=== PATIENT | male | born 1955 | race Caucasian/White ===

== ENCOUNTER → 2016-08-12 | Outpatient (CLI) | payer BC ==
--- NOTE | 2016-08-12 15:13 | RAD ---
Left neck ultrasound, 08/12/2016: History: Neck swelling The left upper neck and submandibular region were carefully scanned. Several lymph nodes are identified. The largest of these measures 18 x 9 x 15 mm. It lies adjacent to the left parotid gland. Its margins are smooth and it demonstrates normal simon architecture. It is mildly hypervascular. Based on its short axis dimension it is considered to be at the upper limits of normal in size. Slightly lower in the left neck there is a 21 x 9 x 6 mm node. Several other smaller lymph nodes are present on both sides. IMPRESSION: Borderline left cervical adenopathy. Clinical surveillance is suggested. Thyroid ultrasound, 08/12/2016: History: Neck swelling The right lobe of the gland measures 3.5 x 1.2 x 1.1 cm while the left lobe of the gland measures 4.0 x 1.1 x 0.85 cm. The gland is moderately heterogeneous with vague areas of decreased density intermixed with higher density areas. No discrete thyroid mass is seen. The thyroid vascularity appears to be decreased. IMPRESSION: Heterogeneous thyroid gland perhaps representing the sequelae of previous thyroiditis.
== END | disposition home or self-care (01) ==
LOC: US 12:28
PROVIDERS: ATTEND Physician Assistant Medical
DX: R22.1 Localized swelling, mass and lump, neck (principal); R50.9 Fever, unspecified; R59.9 Enlarged lymph nodes, unspecified
CPT/HCPCS: 76536

== ENCOUNTER → 2016-12-28 | Outpatient (CLI) | payer BC ==
--- NOTE | 2016-12-28 09:22 | RAD ---
Chest radiograph 12/28/2016 at 0838 hours Indication: Cough, edema and cervicalgia Comparison: Chest radiograph 10/02/2014 Technique: PA and lateral views of the chest are provided. Findings: There is borderline appearance of the cardiomediastinal silhouette. Respiratory motion limits evaluation of the lateral view. No pleural effusions or pneumothorax. There is mild interstitial prominence without definite pulmonary vascular congestion. Lungs are otherwise clear. No significant osseous abnormality is identified. Impression: Mild interstitial prominence, predominantly at the lung bases, may be chronic. No acute infiltrate is identified.
--- NOTE | 2016-12-28 09:29 | RAD ---
Cervical spine radiograph 12/28/2016 at 0857 hours Indication: Cough, edema and cervicalgia Comparison: None available Technique: AP, lateral, odontoid views, bilateral obliques and swimmer's view of the cervical spine are provided. Findings: Cervical spine is visualized from the craniocervical junction through approximately C6-C7. There is straightening of the normal cervical lordosis. The C1 lateral masses articulate appropriate with the C2 vertebral body. Dens is normal in appearance. Anterior marginal osteophytosis is present most prominent at C5-C6 and C6-C7. Posterior osteophytosis is noted at C4-C5, C5-C6 and C6-C7. There is moderate facet arthropathy at C2-C3, C3-C4 and C5-C6. No acute fracture is identified. Moderate multilevel uncovertebral joint arthropathy is present. There is right neural foraminal stenosis at C3-C4, C4-C5, C5-C6 and C6-C7 and left neuroforaminal stenosis at C5-C6 and C6-C7. Impression: 1. Moderate cervical spondylosis with suggestion of osseous neural foraminal stenosis on the right at C3-C4, C4-C5, C5-C6 and C6-C7 and on the left at C5-C6 and C6-C7. 2. No acute fracture is identified. Note that the cervicothoracic junction is not well visualized.
== END | disposition home or self-care (01) ==
LOC: DXRADRC 08:35
PROVIDERS: ATTEND Physician Assistant Medical
DX: M47.892 Other spondylosis, cervical region (principal); M40.292 Other kyphosis, cervical region; M25.78 Osteophyte, vertebrae; M12.88 Other specific arthropathies, not elsewhere classified, other specified site; R60.9 Edema, unspecified; R05 Cough; R51 Headache
CPT/HCPCS: 71020; 72050

== ENCOUNTER → 2017-01-26 | Outpatient (CLI) | payer BC ==
[~2017-01-26] MED LIST: IOHEXOL 300 MG/ML 75 ML VIAL. IV ONE
--- NOTE | 2017-01-26 10:40 | RAD ---
Examination: CT soft tissue neck with IV contrast History: History of neck pain Comparison: None Technique: Axial CT images of the soft tissue the neck were performed with IV contrast with coronal and sagittal reformats were performed. PQRS Compliance Statement: One or more of the following individualized dose reduction techniques were utilized for this examination: 1. Automated exposure control 2. Adjustment of the mA and/or kV according to patient size 3. Use of iterative reconstruction technique Findings: The visualized intracranial portion grossly appears unremarkable. 2 prominent nodules or lymph node identified in the left parotid gland with the largest measuring 1.5 cm. The parapharyngeal spaces are maintained. The visualized piriform sinuses, but likely grossly appears unremarkable. The submandibular glands grossly appears unremarkable. There are 3 small central cystic nodules identified in the subcutaneous region of the right cheek with mild surrounding inflammatory fat stranding. There is moderate mucosal thickening of the right maxillary sinus and mild mucosal thickening identified in the left maxillary sinus. The bilateral orbital globes appear intact. Emphysematous changes identified in the apical lungs. The thyroid appears heterogeneous and small. Moderate degenerative changes cervical spine. Impression: 1. There are 3 small central cystic nodules identified in the subcutaneous region of the right cheek with mild surrounding inflammatory fat stranding, could be subcutaneous nodule such as sebaceous cysts or cystic nodules with surrounding mild inflammation. Correlate clinically. Ultrasound will useful for further evaluation. 2. Prominent left parotid nodules or lymph nodes identified with the largest measuring 1.5 cm. Ultrasound can be useful for further evaluation. 3. Small heterogeneous thyroid gland. 4. Sinus disease.
--- NOTE | 2017-01-26 12:55 | RAD ---
Examination: Ultrasound bilateral lower extremity arterial duplex and ankle brachial indices History: History of smoking, hypertension, diabetes, bilateral leg pain while walking Comparison: None available Findings: The ankle brachial index on the right is 0.87 and in the left is 0.56. There is diffuse atherosclerotic calcification is identified in the bilateral lower extremity arterial system. There is biphasic and monophasic waveforms identified throughout the bilateral lower extremity arterial system except the left common femoral artery which demonstrates triphasic waveforms. No evidence of focal elevated velocity to suggest hemodynamically significant stenosis. Impression: 1. Diffuse atherosclerosis calcification identified in the bilateral lower extremity arterial system without focal stenosis. There are monophasic waveforms identified in the bilateral lower extremity arterial system probably due to proximal atherosclerotic disease. 2. Moderate peripheral arterial disease on the left and mild the peripheral vascular disease on the right.
== END | disposition home or self-care (01) ==
LOC: CT 09:09
PROVIDERS: ATTEND Physician Assistant Medical
DX: E04.2 Nontoxic multinodular goiter (principal); J32.9 Chronic sinusitis, unspecified; M47.892 Other spondylosis, cervical region; I73.9 Peripheral vascular disease, unspecified; E11.9 Type 2 diabetes mellitus without complications; I10 Essential (primary) hypertension; Z87.891 Personal history of nicotine dependence
CPT/HCPCS: 70491; 93922; 93925; Q9967

== ENCOUNTER → 2017-06-28 | Outpatient (CLI) | payer BC ==
--- NOTE | 2017-06-29 11:47 | RAD ---
MR#: [id number] Date of Study: 06/28/2017 Ordering Physician: HARSH ROSA, Referring Physician: HARSH ROSA, Tech: Teena Wilson RDMS, RVT, RTR APPROVED REPORT Patient Location: OUT-PATIENT Indications Claudication: Grayscale images of the bilateral lower extremity arterial vessels were obtained and reveal mild to m oderate diffuse atherosclerotic plaque. On the right side there are mildly elevated velocities at 154 cm/s in the common femoral artery. Ther e is approximately a 50% stenosis involving the proximal and mid superficial femoral artery. The comm on femoral, superficial femoral and popliteal vessels demonstrate biphasic waveforms. There is 2 vess el runoff below the knee with a occluded presumably peroneal artery. Monophasic waveforms in the post erior tibial and anterior tibial vessels with appropriate velocities are noted. On the left similarly there are mild elevation velocities in the common femoral and superficial femor al arteries without any focal high-grade stenosis. The popliteal artery is patent with biphasic wavef orms. Below the knee the peroneal artery was not able to be visualized but there is 2 vessel runoff w ith patent posterior tibial and anterior tibial vessels with again monophasic waveforms noted suggest juli of diffuse atherosclerotic small vessel disease. Critical Notification Critical Value: No <Conclusion> 1. Moderate diffuse bilateral lower extremity artery disease without high grade stenosis. Signed by : Harsh Rosa, Electronically Approved : 06/29/2017 11:46:30
== END | disposition home or self-care (01) ==
LOC: US 08:59
PROVIDERS: ATTEND Internal Medicine Cardiovascular Disease
DX: I73.9 Peripheral vascular disease, unspecified (principal)
CPT/HCPCS: 93925

== ENCOUNTER → 2018-11-12 | Outpatient (CLI) | payer BC ==
--- NOTE | 2018-11-12 08:47 | RAD ---
Chest radiograph 11/12/2018 12:00 AM INDICATION: Bronchitis COMPARISON: Chest radiograph December 28, 2016 TECHNIQUE: Frontal and lateral views of the chest are provided. FINDINGS: The cardiomediastinal silhouette is within normal limits. There are no pleural effusions. There is no pulmonary vascular congestion. There is no pneumothorax. Bronchial wall thickening is compatible with bronchitis. Finding the diaphragms may reflect air trapping as may be seen with COPD. No focal airspace consolidation. No significant osseous abnormality is identified. IMPRESSION: Findings are suggestive of bronchitis without focal airspace consolidation. Electronically signed by: Kinza Cali MD (11/12/2018 8:44 AM) [id number]
== END | disposition home or self-care (01) ==
LOC: PMG 07:47
PROVIDERS: ATTEND Physician Assistant Medical
DX: J40 Bronchitis, not specified as acute or chronic (principal)
CPT/HCPCS: 71046

== ENCOUNTER → 2018-11-19 | Outpatient (CLI) | payer BC ==
--- NOTE | 2018-11-19 15:49 | RAD ---
Thyroid ultrasound HISTORY: Abnormal lab values. FINDINGS: The thyroid is difficult to visualize in this patient. Right thyroid measures 3.8 x 1.7 x 1.1 cm. Solid-appearing nodule in the right thyroid measures 16 x 10 x 6 mm. No definite internal vascularity is seen. Left thyroid measures 3.4 x 1.5 x 1.1 cm. Both lobes of the thyroid appear heterogeneous. There is less than expected blood flow identified throughout the thyroid. IMPRESSION: 1. Suboptimal fibroid visualization. 2. Solid nodule in the right thyroid measures 16 x 10 x 6 mm. 3. Heterogeneous thyroid echotexture with overall hypovascular appearance. Electronically signed by: Tobias Larsen MD (11/19/2018 3:46 PM) [email or web address]
== END | disposition home or self-care (01) ==
LOC: US 10:40
PROVIDERS: ATTEND Physician Assistant Medical
DX: E04.1 Nontoxic single thyroid nodule (principal)
CPT/HCPCS: 76536

== ENCOUNTER → 2019-04-22 | Outpatient (CLI) | payer BC ==
--- NOTE | 2019-04-22 15:34 | RAD ---
Bilateral lower extreme knee arterial ABIs for leg pain. TECHNIQUE AND FINDINGS: ABIs are calculated bilaterally using both posterior tibial artery and dorsalis pedis arteries. Both dorsalis pedis arteries are occluded however. The MISSAEL on the right is 0.5 on the left 0.6. IMPRESSION: 1. Severely abnormal ABIs bilaterally as described. Recommend further evaluation with CTA or direct angiography. Electronically signed by: Nitin Allen MD (04/22/2019 3:31 PM) [email or web address]
== END | disposition home or self-care (01) ==
LOC: US 09:26
PROVIDERS: ATTEND Physician Assistant Medical
DX: I70.203 Unspecified atherosclerosis of native arteries of extremities, bilateral legs (principal)
CPT/HCPCS: 93922

== ENCOUNTER → 2019-07-15 | Outpatient (CLI) | payer MEDICARE, BC ==
[2019-07-15 10:26] LABS: ALBUMIN 3.7 g/dL (3.4-5.0); ALBUMIN/GLOBULIN RATIO 0.8 (1.0-1.7); CALCIUM 9.1 mg/dL (8.5-10.1); CREATININE 1.1 mg/dL (0.7-1.3); GFR 67.4; POTASSIUM 4.2 mmol/L (3.5-5.1); TOTAL BILIRUBIN 0.5 mg/dL (0.2-1.0); TOTAL PROTEIN 8.2 g/dL (6.4-8.2)
[2019-07-15 11:05] LABS: BASO # 0.1 x10^3/uL (0.0-0.2); BASO % 1 % (0-3); EOS # 0.1 x10^3/uL (0.0-0.7); EOS % 1 % (0-3); HEMATOCRIT 48.3 % (39.0-53.0); LYMPH % 31 % (24-48); MEAN CORPUSCULAR HEMOGLOBIN 35 pg (25-35); MEAN CORPUSCULAR HGB CONC 33 g/dL (31-37); MEAN CORPUSCULAR VOLUME 105 fL (79-100); MONO # 0.9 x10^3/uL (0.0-1.1); MONO % 9 % (0-9); NEUT # 5.7 x10^3uL (1.8-7.7); NEUT % 58 % (31-73); PLATELET COUNT 248 x10^3/uL (140-400); RED BLOOD COUNT 4.61 x10^6/uL (4.30-5.70); RED CELL DISTRIBUTION WIDTH 14.3 % (11.5-14.5); WHITE BLOOD COUNT 9.8 x10^3/uL (4.0-11.0)
--- NOTE | 2019-07-15 11:36 | RAD ---
EXAM: CT Abdomen and Pelvis without IV contrast INDICATION: Left lower quadrant abdominal pain TECHNIQUE: Multi-detector row CT images were acquired from the lung bases through the abdomen and pelvis without the use of IV contrast. Sagittal and coronal images were acquired from the transaxial data. All CT scans performed at this facility utilize dose optimization techniques as appropriate to the exam, including the following: Automated exposure control and adjustment of the mA and/or KV according to patient size (this includes techniques or standardized protocols for targeted exams where dose is indication/reason for exam). ORAL CONTRAST: None COMPARISON: None FINDINGS: The absence of IV contrast limits evaluation of soft tissue pathology. LOWER CHEST: Respiratory motion artifact. No focal infiltrates, pleural effusion or mass is identified in the included field of view of the lung bases. LIVER: Diffuse fatty infiltration with hepatic enlargement to 21 cm craniocaudal extent. BILIARY SYSTEM: Gallbladder is unremarkable. Bile ducts are not dilated. PANCREAS: Unremarkable SPLEEN: Unremarkable ADRENALS: Unremarkable KIDNEYS & URETERS: Mild bilateral perirenal soft tissue stranding, nonspecific. BLADDER: Mild diffuse urinary bladder wall thickening is present. No perivesical soft tissue stranding is appreciated. REPRODUCTIVE ORGANS: Small prostate gland. GASTROINTESTINAL: The stomach, small bowel, and colon show spasm of the sigmoid colon but otherwise are unremarkable. No findings of acute inflammation are identified. The appendix is not well seen and there are no findings of acute appendicitis present. MESENTERY/PERITONEUM/RETROPERITONEUM: Unremarkable VASCULAR: Partially imaged left femoral artery stent. LYMPH NODES: No adenopathy OSSEOUS & SOFT TISSUES: Lumbar spinal degenerative spondylosis. IMPRESSION: Mild diffuse bladder wall thickening, compatible with cystitis in the appropriate clinical context, and sigmoid colonic spasm. Otherwise unremarkable abdomen and pelvis CT without IV contrast showing no specific findings to explain left lower quadrant abdominal pain. IV contrast could be considered in further evaluation if clinically warranted. Electronically signed by: Crissy Ellis MD (07/15/2019 11:33 AM) [id number]
[2019-07-15 12:12] LABS: SEDIMENTATION RATE 28 (0-15)
== END | disposition home or self-care (01) ==
LOC: CT 09:21
PROVIDERS: ATTEND Physician Assistant Medical
DX: K76.0 Fatty (change of) liver, not elsewhere classified (principal); K58.8 Other irritable bowel syndrome; N30.90 Cystitis, unspecified without hematuria
CPT/HCPCS: 36415; 74176; 80053; 85025; 85651

== ENCOUNTER 2019-08-11 03:02 | Emergency (ER) | payer MEDICARE, BC ==
[~2019-08-11] VITALS: Ht 182.9 cm; Wt 118.2 kg
--- NOTE | 2019-08-11 03:06 | PHYS DOC ---
Past History Past Medical History: Arthritis, Bronchitis, CAD, Other Smoking: Cigarettes, Quit Greater Than 1 Year Adult General Chief Complaint Chief Complaint: ...My back been brothering me a while... I seen [facility]y for it... but it really bad tonight here on Lt. ... I did move a refrigerator earlier... in week..." HPI HPI Patient is a 64 year old male who presents with above hx and complaints left lower back pain that radiates into his left sciatic nerve. Straight leg lift exacerbates pain on his left lower back and sciatic nerve. Patient denies any history of fevers. Patient denies any history of cancer. Patient denies any history immunosuppression. No recent travel outside the area. Patient denies any problems defecation or urination. No history immunosuppression. No specific ill contacts. Follows with [facility] for care. Pt. does smoked tobacco. Review of Systems Review of Systems Constitutional: Denies fever or chills [] Eyes: Denies change in visual acuity, redness, or eye pain [] HENT: Denies nasal congestion or sore throat [] Respiratory: Denies cough or shortness of breath [] Cardiovascular: No additional information not addressed in HPI [] GI: Denies abdominal pain, nausea, vomiting, bloody stools or diarrhea [] : Denies dysuria or hematuria [] Musculoskeletal:Lt. lower back pain or joint pain [] Integument: Denies rash or skin lesions [] Neurologic: Denies headache, focal weakness or sensory changes [] Endocrine: Denies polyuria or polydipsia [] All other systems were reviewed and found to be within normal limits, except as documented in this note. Family History Family History Noncontributory presentation Current Medications Current Medications See nursing for home meds Allergies Allergies Allergies Coded Allergies Type Severity Reaction Last Updated Verified No Known Drug Allergies 01/26/17 No Physical Exam Physical Exam Constitutional: Moderate acute distress, non-toxic appearance. [] HENT: Normocephalic, atraumatic, bilateral external ears normal, oropharynx moist, no oral exudates, nose normal. [] Eyes: PERRLA, EOMI, conjunctiva normal, no discharge. [] Neck: Normal range of motion, no tenderness, supple, no stridor. [] Cardiovascular:Heart rate regular rhythm, no murmur [] Lungs & Thorax: Bilateral breath sounds equal apex with scattered wheezes auscultation [] Abdomen: Bowel sounds normal, soft, no tenderness, no masses, no pulsatile masses. Morbidly obese. Has saddle sensation Skin: Warm, dry, no erythema, no rash. [] Back: No tenderness, no CVA tenderness. [] Extremities: Left hip tenderness, no cyanosis, no clubbing, ROM intact, no edema. [] Straight leg lift on left exacerbates back pain. Contusion forearm Neurologic: Alert and oriented X 3, normal motor function, normal sensory function, no focal deficits noted. []DTRs +2 patella and brachial. No clonus. Patient is ambulatory with limp with Lt leg. Psychologic: Affect anxious, judgement normal, mood normal. [] EKG EKG [] Radiology/Procedures Radiology/Procedures [][address] [address] IMAGING REPORT Signed PATIENT: HEATHER VILLEGAS ACCOUNT: [id number] : 1955 LOCATION: ER AGE: 64 SEX: M EXAM STATUS: REG ER ORD. PHYSICIAN: SENDY ROJAS MD REASON: pain Lt. hip PROCEDURE: CT PELVIS WO CONTRAST INDICATION: Injury with pain in the lumbar spine and pelvis COMPARISON: None. TECHNIQUE: Axial CT images obtained through the pelvis and lumbar spine. One or more of the following individualized dose reduction techniques were utilized for this examination: 1. Automated exposure control; 2. Adjustment of the mA and/or kV according to patient size; 3. Use of iterative reconstruction technique. FINDINGS: Lumbar spine: No evidence of malalignment. There is prominent fat within the central canal with small size of the thecal sac. Disc protrusions and osteophyte formation at the vertebral body endplates as well as facet hypertrophy with multilevel central canal and neural foraminal stenosis. Severe calcific atherosclerosis. Region of sclerosis through S1. Pelvis: Sclerosis and lucency at the femoral heads. Degenerative changes of the bilateral hips. Sclerosis at S1. Calcific atherosclerosis. Bilateral hips are well aligned without evidence of subluxation. Fat-containing left inguinal hernia. IMPRESSION: * Multilevel disc protrusions and osteophyte formation as well as facet hypertrophy with epidural lipomatosis. This contributes to multilevel central canal and neural foraminal stenosis. * Horizontally oriented region of sclerosis within S1. Would correlate with symptoms in the region since causes such as stress fracture could have this appearance if the patient has pain in the area. No evidence of a displaced fracture. * Sclerosis and lucency at the femoral heads. Could be from causes such as avascular necrosis/bone infarct. Electronically signed by: Anat Palm MD (08/11/2019 5:07 AM) [id number] DICTATED AND SIGNED BY: ANAT PALM MD DATE: 08/11/19 0507 CC: SENDY ROJAS MD; JEY ZIMMERMAN ~ Course & Med Decision Making Course & Med Decision Making Pertinent Labs and Imaging studies reviewed. (See chart for details) She is ice packs as needed. Patient take Tylenol and ibuprofen for pain. For marked pain may take Vicoprofen up 4 times a day. Patient may take Flexeril 10 mg up to 3 times a day for muscle spasms. Follow-up primary care. Review ED work up with primary. May be candidate for neurosurgery / orthro. referral. r Return if any concerns. Then patient practice social isolation. Avoid crowds. Avoid travel. Follow [facility] for up to date information on [place]-19 information. Impression: 1. Sciatica exacerbation- Lt. 2. DJD Hips 3. Spinal Stenosis [] Dragon Disclaimer Dragon Disclaimer This electronic medical record was generated, in whole or in part, using a voice recognition dictation system. Departure Departure: Disposition: 01 HOME/RESIDENCE PRIOR TO ADM Condition: STABLE Referrals: JEY ZIMMERMAN (PCP) Scripts Cyclobenzaprine Hcl (CYCLOBENZAPRINE HCL) 10 Mg Tablet 10 MG PO tidprn for spasms., #30 TAB Prov: SENDY ROJAS MD 08/11/19 Hydrocodone/Ibuprofen (HYDROCODONE-IBUPROFEN 7.5-200 ) 1 Each Tablet 1 TAB PO PRN Q6HRS PRN for PAIN, #30 TAB 0 Refills Prov: SENDY ROJAS MD 08/11/19 Dragwen Disclaimer This chart was dictated in whole or in part using Voice Recognition software in a busy, high-work load, and often noisy Emergency Department environment. It may contain unintended and wholly unrecognized errors or omissions. Dragon Disclaimer This chart was dictated in whole or in part using Voice Recognition software in a busy, high-work load, and often noisy Emergency Department environment. It may contain unintended and wholly unrecognized errors or omissions. SENDY ROJAS MD Aug 11, 2019 03:06
[2019-08-11] MEDS ORDERED: ORPHENADRINE CITRATE 60 MG/2 ML VIAL. IM ONE (03:30)
[2019-08-11] MEDS ORDERED: methylPREDNISolone ACETATE 40 MG/ML VIAL. IM ONE (03:30)
[2019-08-11] MEDS ORDERED: MORPHINE SULFATE 10 MG/ML SYRINGE. SQ ONE (03:30)
[2019-08-11] MEDS ORDERED: KETOROLAC 60 MG/2 ML VIAL. IM ONE (03:30)
[2019-08-11] MEDS ORDERED: HYDR-1179 PO (03:49)
[2019-08-11] MEDS ORDERED: CYCL-331 PO (03:49)
--- NOTE | 2019-08-11 05:09 | RAD ---
INDICATION: Injury with pain in the lumbar spine and pelvis COMPARISON: None. TECHNIQUE: Axial CT images obtained through the pelvis and lumbar spine. One or more of the following individualized dose reduction techniques were utilized for this examination: 1. Automated exposure control; 2. Adjustment of the mA and/or kV according to patient size; 3. Use of iterative reconstruction technique. FINDINGS: Lumbar spine: No evidence of malalignment. There is prominent fat within the central canal with small size of the thecal sac. Disc protrusions and osteophyte formation at the vertebral body endplates as well as facet hypertrophy with multilevel central canal and neural foraminal stenosis. Severe calcific atherosclerosis. Region of sclerosis through S1. Pelvis: Sclerosis and lucency at the femoral heads. Degenerative changes of the bilateral hips. Sclerosis at S1. Calcific atherosclerosis. Bilateral hips are well aligned without evidence of subluxation. Fat-containing left inguinal hernia. IMPRESSION: * Multilevel disc protrusions and osteophyte formation as well as facet hypertrophy with epidural lipomatosis. This contributes to multilevel central canal and neural foraminal stenosis. * Horizontally oriented region of sclerosis within S1. Would correlate with symptoms in the region since causes such as stress fracture could have this appearance if the patient has pain in the area. No evidence of a displaced fracture. * Sclerosis and lucency at the femoral heads. Could be from causes such as avascular necrosis/bone infarct. Electronically signed by: Jordan Palm MD (08/11/2019 5:07 AM) [id number]
[2019-08-11 05:20] VITALS: BP 151/71
== END 2019-08-11 05:26 | disposition home or self-care (01) ==
LOC: ER 03:02
DX: M54.42 Lumbago with sciatica, left side (principal); M16.0 Bilateral primary osteoarthritis of hip; M48.061 Spinal stenosis, lumbar region without neurogenic claudication
CPT/HCPCS: 72131; 72192; 96372; 99285; J1030; J1885; J2270; J2360

== ENCOUNTER → 2019-10-15 | Outpatient (CLI) | payer BC, MEDICARE ==
[~2019-10-15] MED LIST changes: +CYCL-331 PO; +HYDR-1179 PO; -IOHEXOL 300 MG/ML 75 ML VIAL. IV ONE
--- NOTE | 2019-10-15 11:50 | RAD ---
Bilateral lower extremity arterial duplex ultrasound 10/15/2019 INDICATION: Peripheral vascular disease. Left-sided stent. Multiple prior angioplasties. COMPARISON STUDY: Ankle-brachial indices April 22, 2019 Discussion: Duplex arterial ultrasound evaluation of the major arteries of the bilateral lower extremities was performed including color Doppler imaging and spectral analysis. Triphasic waveforms are seen in the right common femoral artery. Velocities are mildly elevated up to 221 cm/s.. There is a shift monophasic waveforms of the mid right SFA throughout the remainder of the right lower extremity.. The right peroneal artery is nonvisualized and may be chronically occluded. No other focal elevation of velocity suggestive of hemodynamically significant stenosis is identified Similar findings are seen on the left side with triphasic normal waveforms the left common femoral artery. There is then a shift to monophasic waveforms in the left SFA extending throughout the left lower extremity. Left peroneal artery is nonvisualized comment possibly occluded.No other focal elevation of velocity suggestive of hemodynamically significant stenosis is identified IMPRESSION: 1. Elevated velocity in right common femoral artery. Mild to moderate stenosis is possible. 2. Possible occlusion of the bilateral peroneal arteries 3. Monophasic waveforms from the bilateral superficial femoral arteries distally, without definitive focal elevation of velocity suggesting stenosis. Given patient history, and probable diffuse atherosclerotic vascular disease, Consider CT angiography for further evaluation. Electronically signed by: Shayne Cardona MD (10/15/2019 11:47 AM) [id number]
== END | disposition home or self-care (01) ==
LOC: US 10:41
PROVIDERS: ATTEND Internal Medicine Cardiovascular Disease
DX: I74.3 Embolism and thrombosis of arteries of the lower extremities (principal); I73.9 Peripheral vascular disease, unspecified; E78.5 Hyperlipidemia, unspecified
CPT/HCPCS: 80061; 93925

== ENCOUNTER → 2020-04-01 | Outpatient (CLI) | payer BC, MEDICARE ==
--- NOTE | 2020-04-01 18:34 | RAD ---
Right foot AP lateral x-rays 2 views HISTORY: Right foot pain. FINDINGS: Spur the plantar calcaneus. Dorsal foot soft tissue edema and swelling. Transverse fracture at the base of the second metatarsal. There is also transverse fracturing of the base of the first metatarsal. Osteoarthritis first MTP joint with bulky bone spurs. IMPRESSION: 1. Fractures of the bases of the first and second metatarsals. 2. Osteoarthritis of the first MTP joint. Electronically signed by: Jeet Maya MD (04/01/2020 6:32 PM) [facility]
== END ==
LOC: RAD 17:28
PROVIDERS: ATTEND Physician Assistant
DX: S92.311A Displaced fracture of first metatarsal bone, right foot, initial encounter for closed fracture (principal); S92.321A Displaced fracture of second metatarsal bone, right foot, initial encounter for closed fracture; M19.071 Primary osteoarthritis, right ankle and foot; X58.XXXA Exposure to other specified factors, initial encounter; Y93.89 Activity, other specified; Y92.89 Other specified places as the place of occurrence of the external cause; Y99.8 Other external cause status
CPT/HCPCS: 73620

== ENCOUNTER → 2020-04-14 | Outpatient (CLI) | payer MEDICARE, BC ==
--- NOTE | 2020-04-14 12:50 | RAD ---
CT right foot without contrast HISTORY: Right midfoot dislocation. PQRS statement: CT scans at this facility use dose reduction including either automated exposure control, iterative reconstructions, and /or weight based radiation dosing via mA and kV modification when appropriate to reduce radiation dose to as low as reasonably achievable. COMPARISON: Right foot x-rays April 01, 2020 FINDINGS: Acute traumatic fracture across the base of the first metatarsal with intra-articular extension to the tarsal metatarsal joint and tiny fracture fragments of the articular bone of the medial cuneiform. No joint dislocation evident. Comminuted acute traumatic fracture at the base of the second metatarsal with intra-articular extension at the tarsometatarsal joint with mild distraction of fracture fragments of up to 3 mm. There is probable involvement by the fracture of the attachment of the Lisfranc ligament. There is no distraction between the bases of the first and second metatarsals evident. There is no obvious fracture of the intermediate cuneiform. Acute traumatic comminuted fracture at the base of the third metatarsal with intra-articular extension at the tarsal metatarsal joint with distraction of up to 3 mm. There is also fracture of the inferior segment of the lateral cuneiform. The remainder of the foot demonstrates no fracture or dislocation. There is advanced osteoarthritis at the first metatarsal phalangeal joint. Small spur at the plantar calcaneus. IMPRESSION: 1. Acute traumatic fractures at the midfoot involving the first, second and third tarsal metatarsal joints as described above. 2. 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 Electronically signed by: Jeet Maya MD (04/14/2020 12:47 PM) [facility]
== END ==
LOC: CT 11:03
PROVIDERS: ATTEND Podiatrist Foot & Ankle Surgery
DX: S92.321A Displaced fracture of second metatarsal bone, right foot, initial encounter for closed fracture (principal); M19.071 Primary osteoarthritis, right ankle and foot; X58.XXXA Exposure to other specified factors, initial encounter; Y93.89 Activity, other specified; Y92.89 Other specified places as the place of occurrence of the external cause; Y99.8 Other external cause status
CPT/HCPCS: 73700

== ENCOUNTER → 2020-08-12 | Outpatient (CLI) | payer MEDICARE, BC ==
--- NOTE | 2020-08-12 16:01 | RAD ---
MR#: [id number] Date of Study: 08/12/2020 Ordering Physician: JOSE ELIAS SALVADOR, Referring Physician: JOSE ELIAS SALVADOR, Tech: Luna Ibanez RVT,[facility] APPROVED REPORT Patient Location: OUT-PATIENT Exam Type: Ankle to Brachial Index Indications Claudication: PAD Abnormal bilateral ABIs as noted above Risk Factors Hypertension Smoking Pressures/Indices RightABI LeftABI Brachial 134mmHgBrachial 132mmHg Ankle(PT) 64mmHgAnkle(PT) 82mmHg Ankle(DP) 52fdLg5.5Ankle(DP) 37xzCw7.6 Critical Notification Critical Value: No <Conclusion> 1. Moderate to severe abnormality of the bilateral ABIs as noted above Signed by : Jose Elias Salvador, Electronically Approved : 08/12/2020 16:00:55
--- NOTE | 2020-08-12 16:03 | RAD ---
MR#: [id number] Date of Study: 08/12/2020 Ordering Physician: JOSE ELIAS SALVADOR, Referring Physician: JOSE ELIAS SALVADOR, Tech: Luna Ibanez RVT,[facility] APPROVED REPORT Patient Location: OUT-PATIENT Indications Claudication: PAD Grayscale images of the bilateral lower extremity arterial vessels demonstrate severe diffuse atheros clerotic plaque. On the right side there are mostly monophasic waveforms extending from the superficial femoral artery to the below-knee vessels. There is three-vessel runoff although there is diminished velocities sug gestive of more proximal inflow disease. There is probable at least moderate stenosis involving the right SFA. On the left side there is a patent previously placed SFA stent with likely greater than 70% stenosis involving the proximal and midportion of the stent. There is three-vessel runoff below the knee. Risk Factors Hypertension Smoking Surgery/Intervention Stent : Site : LT SFA VELOCITY AND DOPPLER WAVEFORM ANALYSIS RIGHT cm/secWaveformSeverity LEFT cm/secWaveform Severity pCFA 198.1TriphasicpCFA 137.4Triphasic Prof Fem Art. 154.0BiphasicProf Fem Art. 175.0Biphasic Fem Art Prox. 37.6BiphasicFem Art Prox. 134.6Monophasic Fem Art Mid. 143.4MonophasicFem Art Mid. 535.0Monophasic Fem Art Dist. 58.3MonophasicFem Art Dist. 135.5Monophasic Pop Art(Fossa) 48.4MonophasicPop Art(AK) 55.4Monophasic SPECIAL DAY CLASS TEACHER Prox. 39.8MonophasicPTA Prox. 78.5Monophasic SPECIAL DAY CLASS TEACHER Dist. 47.7MonophasicPTA Dist. 46.3Monophasic Per Art Prox. Per Art Prox. 30.0Monophasic Per Art Mid. Per Art Mid. ALYSE Prox. 26.6MonophasicATA Prox. 33.7Monophasic DPA 39MonophasicDPA 33Monophasic Critical Notification Critical Value: Yes <Conclusion> 1. Bilateral moderate to severe SFA disease with patent stent in the left SFA with greater than 70% ISR. Signed by : Jose Elias Salvador, Electronically Approved : 08/12/2020 16:03:38
== END ==
LOC: ECHO 08-11 07:51 → US 14:28
PROVIDERS: ATTEND Internal Medicine Cardiovascular Disease
DX: I70.203 Unspecified atherosclerosis of native arteries of extremities, bilateral legs (principal)
CPT/HCPCS: 93922; 93925

== ENCOUNTER → 2020-12-14 | Outpatient (CLI) | payer MEDICARE, BC ==
--- NOTE | 2020-12-14 16:09 | RAD ---
MR#: [id number] Date of Study: 12/14/2020 Ordering Physician: JOSE ELIAS ROSA, Referring Physician: JOSE ELIAS ROSA, Tech: Nighat Tamayo, RDMS, RVT, RTR APPROVED REPORT Patient Location: OUT-PATIENT Indications PAD Left Arterial Stent Risk Factors History of Lower Extremity PAD: Bilaterally Hypertension Grayscale images the bilateral lower extremity arterial vessels demonstrates moderate to severe diffu se atherosclerosis. On the right side the proximal SFA is occluded with diminished monophasic waveforms from the poplitea l segment to the below-knee vessels. On the left side previously placed left femoral SFA stent is patent without any critical stenosis. T here is three-vessel runoff below the knee although the waveforms are monophasic consistent with heav y calcific disease. VELOCITY AND DOPPLER WAVEFORM ANALYSIS RIGHT cm/secWaveformSeverity LEFT cm/secWaveform Severity pCFA 154.0pCFA 83.0 Prof Fem Art. 285.4Prof Fem Art. 168.0 Fem Art Prox. 111.8Fem Art Prox. 135.5 Fem Art Mid. 98.3Fem Art Mid. 137.7 Fem Art Dist. 117.0Fem Art Dist. 199.4 Pop Art(AK) 42.1Pop Art(AK) 78.7 BINDERY CHIEF Prox. 17.0PTA Prox. 29.4 BINDERY CHIEF Dist. 38.6PTA Dist. 67.5 Per Art Prox. 48.4Per Art Prox. 56.9 ALYSE Prox. 21.5ATA Prox. 48.2 DPA 40DPA 50 Critical Notification Critical Value: No <Conclusion> 1. Right SFA occlusion with collateral flow noted in the below-knee vessels. This is unchanged from prior 2. Mild to moderate diffuse left lower extremity arterial disease. Much improved after recent left SFA angioplasty. Signed by : Jose Elias Rosa, Electronically Approved : 12/14/2020 16:09:21
--- NOTE | 2020-12-14 16:10 | RAD ---
MR#: [id number] Date of Study: 12/14/2020 Ordering Physician: JOSE ELIAS ROSA, Referring Physician: JOSE ELIAS ROSA, Tech: Nighat Tamayo, LOLY, RVT, RTR APPROVED REPORT Patient Location: OUT-PATIENT Exam Type: Ankle to Brachial Index Indications PAD Left Indwelling Stent Risk Factors History of PAD: Bilaterally Hypertension Pressures/Indices RightABI LeftABI Brachial 158mmHg.4Brachial 160mmHg.56 Ankle(PT) 60mmHgAnkle(PT) 100mmHg Ankle(DP) 64mmHgAnkle(DP) 90mmHg Critical Notification Critical Value: No <Conclusion> 1. Severely abnormal bilateral MISSAEL with right greater than left disease. Signed by : Jose Elias Rosa, Electronically Approved : 12/14/2020 16:10:30
== END ==
LOC: US 07:51
PROVIDERS: ATTEND Internal Medicine Cardiovascular Disease
DX: I77.9 Disorder of arteries and arterioles, unspecified (principal); I73.9 Peripheral vascular disease, unspecified
CPT/HCPCS: 93923; 93925

== ENCOUNTER 2021-01-25 11:17 | Emergency (ER) | payer MEDICARE, BC ==
[~2021-01-25] VITALS: Ht 182.9 cm; Wt 113.6 kg
[2021-01-25 11:35] VITALS: BP 152/65
--- NOTE | 2021-01-25 11:40 | PHYS DOC ---
Past History Past Medical History: Arthritis, Bronchitis, CAD, Other Past Surgical History: Appendectomy Smoking: Cigarettes, Quit Greater Than 1 Year Alcohol Use: None Adult General Chief Complaint Chief Complaint: LACERATION/AVULSION HPI HPI Patient is a 65-year-old male presenting for laceration. Reports he was trying to use a knife and opened the top of the bucket when he accidentally missed the bucket and cut the ventral portion of his left forearm. Admits he is on Plavix, states he put a rag on area to stop the bleeding immediately presented to the ER for evaluation. Denies any motor or sensory or neuro function changes of left upper extremity Review of Systems Review of Systems Fourteen body systems of review of systems have been reviewed. See HPI for pertinent positives and negative responses, other velazquez all other systems are negative, non-pertinent or non-contributory Allergies Allergies Allergies Coded Allergies Type Severity Reaction Last Updated Verified Druvshu-Msi-Bng Reductase Inhibitor Allergy Unknown 08/11/19 Yes Physical Exam Physical Exam Constitutional: Well developed, well nourished, no acute distress, non-toxic appearance. HENT: Normocephalic, atraumatic, bilateral external ears normal, oropharynx moist, no oral exudates, nose normal. Eyes: PERRLA, EOMI, conjunctiva normal, no discharge. Neck: Normal range of motion, no tenderness, supple, no stridor. Cardiovascular: Heart rate regular per monitor Lungs & Thorax: No respiratory distress or accessory muscle use, bilateral chest rise Abdomen: Abdomen soft, non-tender, bowel sounds present in all quadrants, no guarding or rebound, nonacute abdomen. Skin: Warm, dry, no erythema, no rash. 2.2 cm linear laceration to medial portion of left ventral forearm with minimal subcutaneous fat involvement only, no underlying foreign body, muscle, tendon or other concerning injuries noted Back: No tenderness, no CVA tenderness. Extremities: No tenderness, no cyanosis, no clubbing, ROM intact, no edema. Neurologic: Alert and oriented X 3, medial radial and ulnar nerves of left upper extremity intact, normal motor & sensory function to left upper extremity, no focal deficits noted. Psychologic: Affect normal, judgement normal, mood normal. EKG EKG [] Radiology/Procedures Radiology/Procedures [] Heart Score C/O Chest Pain: No Risk Factors: Risk Factors: DM, Current or recent (<one month) smoker, HTN, HLP, family history of CAD, obesity. Risk Scores: Risk Factors: DM, Current or recent (<one month) smoker, HTN, HLP, family history of CAD, obesity. Course & Med Decision Making Course & Med Decision Making ABCs unremarkable. I disclosed entirety of ER findings and discussed most likely diagnosis of simple laceration to left forearm and the patient on Plavix. Tetanus updated. A total of times 5 sutures placed. Advised need for continued supportive care practices, laceration care and need for removal in upcoming 7 to 10 days. No indication for antibiotics. Plan of care discussed at length with need for close outpatient follow-up to review today's ER visit stressed. Strict return precautions were also discussed at length with good understanding verbalized by patient. Patient voiced understanding and agreement with the plan. Patient knows to come back for repeat evaluation if concerning signs or symptoms present prior to outpatient follow-up. Hemodynamically stable, ambulatory and well-appearing at time of disposition. Dragon Disclaimer Dragon Disclaimer This electronic medical record was generated, in whole or in part, using a voice recognition dictation system. Laceration Repair Lac Repair Indication: Arm laceration Procedure: The patient was placed in the appropriate position and anesthesia around the left forearm laceration with a total of 4cc 1% lidocaine used. The area was then cleansed with wound solution and explored with no concerning findings or foreign bodies. The laceration was closed using a total of x5 simple interrupted nonabsorbable 4.0 Prolene sutures. The wound area was then dressed with appropriate compression dressing. Total repaired wound length: 2.2 cm. Other Items: None The patient tolerated the procedure well. Complications: None. Departure Departure: Impression: Primary Impression: Laceration of forearm, left Disposition: 01 HOME / SELF CARE / HOMELESS Condition: STABLE Referrals: JEY ZIMMERMAN (PCP) Patient Instructions: Laceration Care, Adult Additional Instructions: You were seen for a laceration. Keep the area clean and dry. You should return to the ED or your PCP office to get your sutures removed in 7-10 days. You had a total of x5 stitches placed. Your tetanus was updated today. Return to the ED immediately if you develop any signs of infection like increased pain, redness, fever, or purulent (pus) drainage. Do not take baths, submerge the wound, or use a hot tub until your stitches are removed and the wound is healed. DAVE MORE DO Jan 25, 2021 11:40
[2021-01-25] MEDS ORDERED: LIDOCAINE 1% Multi-Dose 20 ML VIAL. IJ ONE (11:45)
[2021-01-25] MEDS ORDERED: DIPH,PERTUSS(ACELL),TET VAC/PF 0.5 ML SYRINGE. VAX IM ONE ×2 (12:00→12:02)
== END 2021-01-25 12:10 | disposition home or self-care (01) ==
LOC: ER 11:17
DX: S51.812A Laceration without foreign body of left forearm, initial encounter (principal); M19.90 Unspecified osteoarthritis, unspecified site; I25.10 Atherosclerotic heart disease of native coronary artery without angina pectoris; Z87.891 Personal history of nicotine dependence; Z88.8 Allergy status to other drugs, medicaments and biological substances; W26.0XXA Contact with knife, initial encounter; Y93.89 Activity, other specified; Y92.89 Other specified places as the place of occurrence of the external cause; Y99.8 Other external cause status
CPT/HCPCS: 12001; 90471; 90715; 99283

== ENCOUNTER → 2021-05-24 | Outpatient (CLI) | payer MEDICARE, BC ==
[~2021-05-24] MED LIST changes: -CYCL-331 PO; +CYCL10TA19 PO
--- NOTE | 2021-05-24 08:41 | RAD ---
XR KNEE _3 VIEWS_LT History: Knee injury, left knee pain. Comparison: None. Technique: 3 views the left knee. Findings: Osseous mineralization is normal. No fracture is identified. Degenerative changes are present with mo derate medial tibiofemoral compartment narrowing and small tricompartmental osteophytes. There is a m oderate suprapatellar effusion. No focal soft tissue swelling. Quadriceps insertion enthesophyte. Ath erosclerotic vascular calcifications are present Impression: 1. Moderate effusion and degenerative changes without acute osseous abnormality identified in the le ft knee. If there is significant concern for occult tibial plateau fracture, such as the patient tenzin ot bear weight, recommend noncontrast knee CT for further evaluation. Electronically signed by: Norberto José MD (05/24/2021 8:39 AM) [facility]
== END ==
LOC: RAD 08:07
PROVIDERS: ATTEND Physician Assistant Medical
DX: M17.12 Unilateral primary osteoarthritis, left knee (principal); M25.462 Effusion, left knee; M25.762 Osteophyte, left knee
CPT/HCPCS: 73562

== ENCOUNTER → 2021-07-14 | Outpatient (CLI) | payer MEDICARE, BC ==
--- NOTE | 2021-07-14 16:16 | RAD ---
MR#: [id number] Date of Study: 07/14/2021 Ordering Physician: JOSE ELIAS SALVADOR, Referring Physician: JOSE ELIAS SALVADOR, Tech: Luna Ibanez RVT, [facility] APPROVED REPORT Patient Location: OUT-PATIENT Exam Type: Ankle to Brachial Index Indications PAD Risk Factors Hypertension Smoking Surgery/Intervention Stent : Pressures/Indices RightABI LeftABI Brachial 116mmHgBrachial 128mmHg Ankle(PT) 37nxNi4.6Ankle(PT) 85egYe6.7 Ankle(DP) 74mmHgAnkle(DP) 78mmHg Critical Notification Critical Value: No <Conclusion> 1. Moderate to severe bilateral MISSAEL abnormalities as noted above Signed by : Jose Elias Salvador, Electronically Approved : 07/14/2021 16:15:42
--- NOTE | 2021-07-14 16:21 | RAD ---
MR#: [id number] Date of Study: 07/14/2021 Ordering Physician: JOSE ELIAS SALVADOR, Referring Physician: JOSE ELIAS SALVADOR, Tech: Luna Ibanez RVT, [place] APPROVED REPORT Patient Location: OUT-PATIENT Indications PAD Grayscale images of the bilateral lower extremity arterial vessels demonstrates severe diffuse athero sclerosis. On the right side there is likely a proximal SFA occlusion with reconstitution of flow in the mid to distal vessel via collaterals. There are severely diminished velocities in the below-knee vessels al beit there is three-vessel runoff. On the left side there is likely greater than 75% stenosis involv ing the previously placed left SFA stent. There is three-vessel runoff below the knee. Risk Factors Hypertension Smoking Surgery/Intervention Stent : VELOCITY AND DOPPLER WAVEFORM ANALYSIS RIGHT cm/secWaveformSeverity LEFT cm/secWaveform Severity pCFA 186.1TriphasicpCFA 148.7Triphasic Prof Fem Art. 169.0TriphasicProf Fem Art. 111.0Triphasic Fem Art Prox. OccludedFem Art Prox. 303.7Triphasic Fem Art Mid. 103.1MonophasicFem Art Mid. 66.8Monophasic Fem Art Dist. 99.9MonophasicFem Art Dist. 68.8Monophasic Pop Art(Fossa) 73.6MonophasicPop Art(AK) 50.1Monophasic DATA VIRTUALIZATION CONSULTANT Prox. 41.8MonophasicPTA Prox. 72.0Monophasic DATA VIRTUALIZATION CONSULTANT Dist. 38.6MonophasicPTA Dist. 63.6Monophasic Per Art Prox. Per Art Prox. 31.0Monophasic Per Art Mid. OccludedPer Art Mid. ALYSE Prox. 21.2MonophasicATA Prox. 38.9Monophasic DPA 26MonophasicDPA 33Monophasic Critical Notification Critical Value: No <Conclusion> 1. Bilateral high-grade SFA stenosis. Signed by : Jose Elias Salvador, Electronically Approved : 07/14/2021 16:20:47
== END ==
LOC: US 10:40
PROVIDERS: ATTEND Internal Medicine Cardiovascular Disease
DX: I70.203 Unspecified atherosclerosis of native arteries of extremities, bilateral legs (principal)
CPT/HCPCS: 93923; 93925